=== PATIENT | male | born 1945 | race Caucasian/White ===

== ENCOUNTER → 2022-03-15 | Outpatient (CLI) | payer MEDICARE | LOC: EXRD 13:00 | DX: N28.1 Cyst of kidney, acquired (principal); N28.9 Disorder of kidney and ureter, unspecified | CPT/HCPCS: 76775 ==

== ENCOUNTER → 2022-04-04 | Outpatient (CLI) | payer MEDICARE | LOC: CT 14:21 | DX: N28.1 Cyst of kidney, acquired (principal) | CPT/HCPCS: 74150 ==